=== PATIENT | male | born 1950 | race Caucasian/White ===

== ENCOUNTER 2021-08-24 17:20 | Emergency (ER) | payer MEDICARE ==
[2021-08-24] MEDS: Sodium Chloride 0.9% 10 ML Syringe FLUSH PRN ×2 (18:10→20:14)
[2021-08-24] MEDS ORDERED: Albuterol/Ipratropium 3.0-0.5 MG/3 ML Neb Soln NEB ONE ×2 (18:27→19:06)
[2021-08-24] MEDS ORDERED: methylPREDNISolone Sodium Succinate 125 MG/2 ML SDV IVPUSH ONE (18:29)
[2021-08-24] MEDS ORDERED: Sodium Chloride 0.9% 1,000 ML IV STA (19:12)
[2021-08-24] MEDS ORDERED: Iopamidol 755 Mg/ML 100 ML Bottle IVPUSH ONE (19:52)
[2021-08-24] MEDS ORDERED: Sodium Chloride 0.9% 100 ML IV SCH (20:00)
[2021-08-24 20:05] LABS: CORONAVIRUS COVID-19 NAA NEGATIVE (NEGATIVE)
== END 2021-08-24 21:27 | disposition home or self-care (01) ==
LOC: JD.ED 17:20 → EDBD 17:20 → JD.ED 21:27
DX: J44.1 Chronic obstructive pulmonary disease with (acute) exacerbation (principal); E78.00 Pure hypercholesterolemia, unspecified; I10 Essential (primary) hypertension; Z72.0 Tobacco use; Z20.822 Contact with and (suspected) exposure to COVID-19
CPT/HCPCS: 0240U; 36415; 36600; 71045; 71045-26; 71275; 71275-26; 80053; 82803; 83605; 83880; 84484; 85007; 85027; 85379; 85610; 86140; 87040; 93005; 93010; 94640; 96374; 99285; 99285-25; J2930; J7030; J7620-GY; Q9967

== ENCOUNTER 2021-10-18 09:10 | Emergency (ER) | payer MEDICARE ==
[2021-10-18] MEDS ORDERED: Sodium Chloride 0.9% 10 ML Syringe FLUSH PRN (09:23)
[2021-10-18] MEDS ORDERED: methylPREDNISolone Sodium Succinate 125 MG/2 ML SDV IVPUSH ONE (09:39)
[2021-10-18] MEDS ORDERED: Albuterol/Ipratropium 3.0-0.5 MG/3 ML Neb Soln NEB ONE (09:39)
== END 2021-10-18 10:40 | disposition home or self-care (01) ==
LOC: JD.ED 09:10
DX: J44.1 Chronic obstructive pulmonary disease with (acute) exacerbation (principal); E78.00 Pure hypercholesterolemia, unspecified; I10 Essential (primary) hypertension; Z79.899 Other long term (current) drug therapy; Z90.49 Acquired absence of other specified parts of digestive tract
CPT/HCPCS: 36415; 71046; 80053; 83880; 84484; 85025; 85379; 86140; 93005; 94640; 96374; 99285; J2930; J7620-GY

== ENCOUNTER 2021-11-07 22:04 | Emergency (ER) | payer MEDICARE ==
[2021-11-07] MEDS ORDERED: Albuterol/Ipratropium 3.0-0.5 MG/3 ML Neb Soln NEB ONE (23:59)
[2021-11-08] MEDS ORDERED: predniSONE 10 MG Tab PO ONE (00:32)
[2021-11-08] MEDS ORDERED: Albuterol/Ipratropium 3.0-0.5 MG/3 ML Neb Soln NEB ONE (00:34)
== END 2021-11-08 00:56 | disposition home or self-care (01) ==
LOC: JD.ED 22:04
DX: J44.1 Chronic obstructive pulmonary disease with (acute) exacerbation (principal); E78.00 Pure hypercholesterolemia, unspecified; I10 Essential (primary) hypertension; Z79.899 Other long term (current) drug therapy; Z72.0 Tobacco use
CPT/HCPCS: 71045; 94640; 99285; J7512; J7620-GY

== ENCOUNTER 2021-12-12 19:07 | Emergency (ER) | payer MEDICARE ==
[2021-12-12] MEDS ORDERED: Sodium Chloride 0.9% 10 ML Syringe FLUSH PRN (19:45)
== END 2021-12-12 20:50 | disposition home or self-care (01) ==
LOC: JD.ED 19:07
DX: R06.02 Shortness of breath (principal); E78.00 Pure hypercholesterolemia, unspecified; I10 Essential (primary) hypertension; F17.210 Nicotine dependence, cigarettes, uncomplicated; Z79.899 Other long term (current) drug therapy
CPT/HCPCS: 36415; 71045; 71045-26; 80053; 84484; 85025; 93005; 99285-25

== ENCOUNTER 2022-01-16 19:11 | Emergency (ER) | payer MEDICARE ==
[2022-01-16] MEDS ORDERED: Albuterol 0.083% 2.5 MG/3 ML Neb Soln NEB ONE (21:08)
[2022-01-16] MEDS ORDERED: Sodium Chloride 0.9% 1,000 ML IV SCH (23:00)
[2022-01-16] MEDS ORDERED: Albuterol 6.7 GM Inhaler INH PRN (23:57)
== END 2022-01-17 00:20 | disposition home or self-care (01) ==
LOC: JD.ED 19:11
DX: J44.9 Chronic obstructive pulmonary disease, unspecified (principal); R91.1 Solitary pulmonary nodule; E78.00 Pure hypercholesterolemia, unspecified; I10 Essential (primary) hypertension; E66.9 Obesity, unspecified; F17.210 Nicotine dependence, cigarettes, uncomplicated; Z68.30 Body mass index [BMI] 30.0-30.9, adult; Z28.310 Unvaccinated for COVID-19; Z20.822 Contact with and (suspected) exposure to COVID-19
CPT/HCPCS: 36415; 36600; 71046; 71275; 80053; 82803; 83605; 83880; 84484; 85007; 85027; 85379; 87040; 87635; 93005; 94640; 96360; 99285; A9270; J7030; 93010; 99284; U0002